=== PATIENT | male | born 1980 | race Caucasian/White ===

== ENCOUNTER 2016-10-14 23:15 | Observation (INO) | payer OTHER ==
[~2016-10-14] VITALS: Ht 170.2 cm; Wt 80.8 kg
[2016-10-14] MEDS ORDERED: LEXAPRO20 MG PO (23:30)
--- NOTE | 2016-10-15 02:54 | NUR ---
PATIENT ARRIVED TO THE FLOOR AROUND 0225 VIA STRETCHER. PATIENT AMBULATED A PIVOT TRANSFER FROM STRETCHER TO BED. PATIENT ORIENTED TO ROOM AND FLOOR. PATIENT INITIAL ASSESMENT COMPLETED. PATIENT GIVEN PRN MORPHINE AND TORADOL FOR 8/10 PAIN THAT PATIENT STATES IS "ALL OVER" PATIENT HAS A BOOT ON HIS LEFT ANKLE. ICE PACKS APPLIED TO LEFT ANKLE ON TOP OF THE BOOT AND TO LEFT CLAVICLE PER ORDER. PATIENT RECEIVING A BOLUS AT THIS TIME. CALL LIGHT IS WITHIN REACH.
--- NOTE | 2016-10-15 03:12 | NUR ---
NEW IV STARTED BY MARINA FABIAN. PATIENTS IV IS STILL PATENT IN HIS RIGHT AC. PATIENT STRUGGLED W/HOLDING ARM STRAIGHT. PATIENT TOLERATED NE IV START WELL. PATIENT DENIES ANY FURTHER NEEDS CALL LIGHT IS WITHIN REACH.
--- NOTE | 2016-10-15 04:41 | NUR ---
PATIENT COMPLAINS OF GENERALIZED PAIN. PATIENT RATES PAIN AT A 7/10. PATIENT GIVEN PRN PAIN MEDICATION PER ORDER. PATIENT DENIES ANY FURTHER NEEDS AT THIS TIME. CALL LIGHT IS WITHIN REACH.
--- NOTE | 2016-10-15 05:08 | NUR ---
PATIENT ARIVED TO THE FLOOR APPROX 0230. PATIENT HAS A LEFT BOOT ON. PATIENT HAS ICE APPLIED TO LEFT CLAVICAL AND LEFT ANKLE. PATIENT RECEIVED X3 PRN PAIN MEDICATION. PATIENT RECEIVED X1 BOLUS. PATIENT IS ON CLEARS. PATIENT USES URINAL. PATIENT IS AAOX3. PATIENT USES CALL LIGHT APPROP.
--- NOTE | 2016-10-15 06:04 | NUR ---
PATIENTS REPOSTITIONED IN BED. PATIENT GIVEN PRN PAIN MEDICATION FOR 6/10 PAIN IN HIS LEFT FOOT/CLAVICLE. ICE PACKS REFILLED AND PLACED ON PATIENTS BOOT AND CLAVICLE. PATIENT DENIES ANY FURTHER NEEDS. CALL LIGHT IS WITHIN REACH.
--- NOTE | 2016-10-15 06:35 | NUR ---
DR. MILTON CALLED AND INFORMED THAT DR. MARTI ORDERED A CONSULT.
--- NOTE | 2016-10-15 08:53 | NUR ---
PATIENT RESTING IN BED. I GOT HIM FRESH ICE WATER. PATIENT STATED HE DID NOT NEED ANYTHING AT THIS TIME.
--- NOTE | 2016-10-15 09:16 | NUR ---
PT SITTING UP IN BED AWAKE BUT DROWSY, WORKING ON CLEAR LIQ TRAY, FREDDY WELL. PT DENIES N/V. PT REPORTING "CONSISTENT 5-6/10" GENERALIZED BODY PAIN. STATES "THE MORHPINE ONLY DULLS THE PAIN, IT DOESN'T GET RID OF IT COMPLETELY." PT EDUCATED ON PAIN CONTROL. WILL CONTINUE TO REASSESS AND EVALUATE PAIN MED NEEDS. PT ORIENTED TO ALL. PT DENIES REGULAR ALCOHOL USE AND CIWA 0. LEFT ANKLE IN BOOT, MILD SWELLING NOTED. LEFT ARM IN IMMOBILIZER SLING PER DR. MILTON. PT SATTING 95% ON RA, UNABLE TO TAKE DEEP BREATHS DUE TO PAIN.
[2016-10-15] MEDS ORDERED: SSD25 GM TOP (11:51)
--- NOTE | 2016-10-15 11:56 | NUR ---
MED REC COMPLETE--PER PATIENT
[2016-10-15] MEDS ORDERED: IBUPROFEN600 MG PO (12:22)
[2016-10-15] MEDS ORDERED: OXYCODON-ACETA1 EAC2 PO (12:23)
[2016-10-15] MEDS ORDERED: MIRALAX17 GM PO (12:23)
--- NOTE | 2016-10-15 12:35 | NUR ---
PT ATE REG DIET, FREDDY WELL. MEDICATED WITH PRN PERCOCET FOR 7/10 PAIN. DENIES LEFT FOOT BOOT AND LEFT SHOULDER SLING IN PLACE. DENIES FURTHER NEEDS OR CONCERNS AT THIS TIME. CALL LIGHT WITHIN REACH.
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
--- NOTE | 2016-10-15 13:35 | NUR ---
PT 1 PA TO RECLINER USING WALKER. PT PAINFUL WITH MOVEMENT BUT STATES "IT FEELS GOOD TO BE SITTING UP." CALL LIGHT WITHIN REACH.
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
[2016-10-21] MEDS ORDERED: HYDROCODON-ACE1 EA10 PO (14:20)
[2016-10-21] MEDS ORDERED: ZOFRAN4 MG PO (14:21)
== END 2016-10-15 15:34 | disposition home or self-care (01) ==
LOC: ED 23:15 → MS 23:17
PROVIDERS: ADMIT Surgery
DX: S27.0XXA Traumatic pneumothorax, initial encounter (principal); S27.322A Contusion of lung, bilateral, initial encounter; S42.022A Displaced fracture of shaft of left clavicle, initial encounter for closed fracture; S82.62XA Displaced fracture of lateral malleolus of left fibula, initial encounter for closed fracture; F10.129 Alcohol abuse with intoxication, unspecified; Y90.6 Blood alcohol level of 120-199 mg/100 ml; V28.4XXA Motorcycle driver injured in noncollision transport accident in traffic accident, initial encounter; F17.200 Nicotine dependence, unspecified, uncomplicated; Z79.899 Other long term (current) drug therapy
CPT/HCPCS: 70450; 71010; 71260; 72125; 73000; 73610; 74177; 80048; 80053; 82150; 82550; 85025; 96361; 96374; 96375; 96376; 99285; 99406; G0378; G0480; J1170; J1885; J2270; J2405; J7030; J7120; Q9967

== ENCOUNTER 2016-10-27 06:40 | Day surgery (SDC) | payer OTHER ==
[~2016-10-27] VITALS: Ht 170.2 cm; Wt 81.8 kg
[~2016-10-27 06:40] MED LIST: HYDROCODON-ACE1 EA10 PO; IBUPROFEN600 MG PO; LEXAPRO20 MG PO; MIRALAX17 GM PO; OXYCODON-ACETA1 EAC2 PO; SSD25 GM TOP; ZOFRAN4 MG PO
--- NOTE | 2016-10-27 10:22 | NUR ---
[facility].
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
--- NOTE | 2016-10-27 11:36 | NUR ---
TUNG 1130: RUI SAENZ REPORTS THAT PT FAMILY IS AT THE CONTENT STRATEGY LEAD ASKING WES AND VOLUNTEER WHOSE DECISION IT IS TO ALOOW OR NOT ALLOW FAMILY IN THE ROOM. SHE EXPLAINED TO THEM THAT IT CAN BE THE RN'S DECISION WHO IS ALLOWED IN THE ROOM BASED ON WHAT THEY FEEL IS BEST FOR THE PT. RUI HI GETS INVOLVED IN THE CONVERSATION AND SPEAKS WITH THE FAMILY. TO APPEASE THE FAMILY A MEMBER IS ALLOWED IN THE ROOM LONG THEY KEEP STIMULUS TO A MINIMUM. CHARGE NURSE HAS CONVERSATION WITH ME ABOUT PT'S FAMILY COMPLAINT.
--- NOTE | 2016-10-27 12:14 | NUR ---
PATIENT SITTING ON SIDE OF BED, VOIDED 400 ML'S YELLOW URINE. FAMILY AT BEDSIDE DENIES ANY NEEDS.
--- NOTE | 2016-10-27 13:25 | NUR ---
PT IN BED, IV INTACT AND SUPPORTED BY HIS , MOTHER AND SON. HE SEEMED ALERT AND ORIENTED. FELT PREPARED, BUT WAS WAITING FOR DR MILTON TO COME BEFORE SURGERY. MOTHER IS HERE FROM [facility], AND REQUESTED PRAYER, PT CONSENTED. PT SEEMED TO STILL HAVE HIS SENSE OF HUMOR. WILL FOLLOW NEEDED
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
== END 2016-10-27 12:35 | disposition home or self-care (01) ==
LOC: DS 06:40 → OPS 06:40 → DS 08:45 → OPS 08:45
PROVIDERS: Specialist
PROC: 0PS Upper Bones, Reposition (ICD-10-PCS; principal; 2016-10-27 08:45)
DX: S42.022A Displaced fracture of shaft of left clavicle, initial encounter for closed fracture (principal); D64.9 Anemia, unspecified; V29.88XA Motorcycle rider (driver) (passenger) injured in other specified transport accidents, initial encounter; Y93.89 Activity, other specified; Z88.5 Allergy status to narcotic agent; Z98.890 Other specified postprocedural states
CPT/HCPCS: 01630; 64415; 73000; 76942; C1713; J0330; J0690; J1100; J1170; J1885; J2250; J2270; J2405; J2704; J3010; J7120